=== PATIENT | female | born 1995 | race Caucasian/White ===

== ENCOUNTER 2024-11-09 09:35 | Emergency (ER) | payer BC, MEDICAID ==
[~2024-11-09] VITALS: Ht 170.2 cm; Wt 68.0 kg
[2024-11-09 09:56] VITALS: BP 105/74
[2024-11-09] MEDS ORDERED: DIPH25CA83 PO (10:20)
[2024-11-09 10:29] VITALS: BP 111/69; TEMP 98; O2SAT 99
== END 2024-11-09 10:30 | disposition home or self-care (01) ==
LOC: ER 09:35
DX: R21 Rash and other nonspecific skin eruption (principal); F17.210 Nicotine dependence, cigarettes, uncomplicated; F41.9 Anxiety disorder, unspecified
CPT/HCPCS: 99282; Q0163; A4606; A4663